=== PATIENT | female | born 1995 | race African-American/Black ===

== ENCOUNTER 2016-11-06 10:18 | Emergency (ER) | payer MEDICAID ==
[~2016-11-06] VITALS: Ht 165.1 cm; Wt 60.0 kg
[2016-11-06 11:26] LABS: BLOOD UREA NITROGEN 10 mg/dL (7-18)
[2016-11-06 11:49] VITALS: BP 120/78
[2016-11-06 12:04] LABS: DIFF TOTAL CELLS COUNTED 100 CELL DIFF
[2016-11-06 12:05] LABS: VERIFY COUNTS? YES
== END 2016-11-06 13:39 | disposition home or self-care (01) ==
LOC: ED 11:59
DX: N83.02 Follicular cyst of left ovary (principal); Z88.1 Allergy status to other antibiotic agents
CPT/HCPCS: 36415; 76830; 80048; 81003; 82040; 84703; 85025; 87491; 87591; 99285

== ENCOUNTER 2016-12-04 11:59 | Emergency (ER) | payer MEDICAID ==
[~2016-12-04] VITALS: Ht 165.1 cm; Wt 59.8 kg
[2016-12-04 12:01] VITALS: BP 121/81
[2016-12-04 12:45] LABS: HCG UR OBC PASS
[2016-12-04 12:47] LABS: PATH.CAST-FLAG NOT PRESENT; SPERM-FLAG NOT PRESENT; SRC-FLAG NOT PRESENT; XTAL-FLAG NOT PRESENT; YLC-FLAG NOT PRESENT
[2016-12-04 12:55] LABS: ASPARTATE AMINO TRANSFERASE 14 U/L (15-37); BLOOD UREA NITROGEN 11 mg/dL (7-18)
[2016-12-04] MEDS ORDERED: metroNIDAZOLE 500 MG TABLET PO ONE (13:30)
[2016-12-04] MEDS ORDERED: metroNIDAZOLE 500 MG TABLET ONE (13:51)
== END 2016-12-04 14:28 | disposition home or self-care (01) ==
LOC: ED 12:33
DX: N83.202 Unspecified ovarian cyst, left side (principal); R10.30 Lower abdominal pain, unspecified; B37.3 Candidiasis of vulva and vagina
CPT/HCPCS: 36415; 76830; 80053; 81001; 81025; 85025; 87210; 87491; 87591; 87808

== ENCOUNTER 2017-02-25 23:18 | Emergency (ER) | payer MEDICAID ==
[~2017-02-25] VITALS: Ht 167.6 cm; Wt 55.7 kg
[2017-02-25 23:20] VITALS: BP 119/79
[2017-02-25] MEDS ORDERED: DIPHENHYDRAMINE 25 MG CAPSULE ONE (23:45)
[2017-02-25] MEDS ORDERED: ACETAMINOPHEN 325 MG TABLET ONE (23:46)
[2017-02-26] MEDS ORDERED: DIPHENHYDRAMINE 25 MG CAPSULE PO ONE
[2017-02-26] MEDS ORDERED: ACETAMINOPHEN 325 MG TABLET PO ONE
== END 2017-02-26 00:06 | disposition home or self-care (01) ==
LOC: ED 23:30
DX: S90.861A Insect bite (nonvenomous), right foot, initial encounter (principal); S90.862A Insect bite (nonvenomous), left foot, initial encounter; Z88.2 Allergy status to sulfonamides; W57.XXXA Bitten or stung by nonvenomous insect and other nonvenomous arthropods, initial encounter; Y93.9 Activity, unspecified; Y92.89 Other specified places as the place of occurrence of the external cause; Y99.8 Other external cause status
CPT/HCPCS: 99283; Q0163